=== PATIENT | female | born 1935 | race Caucasian/White ===

== ENCOUNTER 2017-05-23 13:57 | Outpatient (CLI) | payer MEDICARE, OTHER ==
--- NOTE | 2017-05-23 17:15 | CT ---
CT BRAIN WITHOUT CONTRAST: Date: 05/23/17 HISTORY: Delirium. FINDINGS: Comparison made with exam of 07/14/10. 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 The ventricular size is stable. The basilar cisterns are patent. No evidence of acute infarct, hemorrhage, midline shift, or abnormal ex tra-axial fluid collections are seen. The bony calvarium is intact. The visualized paranasal sinuses and mastoid air cells are well aerated. IMPRESSION: No CT evidence of acute intracranial process. POS: DARCIH
--- OUTSIDE RECORDS SUMMARY | 2017-05-25 21:43 | XMS | Clinical Summary ---
:1935 Author Organization [facility] Address [address] [place] [address] Phone Care Team Providers Name Role Phone , Primary Care Provider Unavailable Allergies Not on File Current Medications Not on file Active Problems Not on file Social History Tobacco Use Types Packs/Day Years Used Date Never Assessed Sex Assigned at Date Recorded Not on file Last Filed Vital Signs Not on file Plan of Treatment Not on file Results Not on filefrom Last 3 Months
== END 2017-05-23 13:58 | disposition home or self-care (01) ==
LOC: SCSCT 13:57
PROVIDERS: ATTEND Family Medicine
DX: R41.0 Disorientation, unspecified (principal)
CPT/HCPCS: 70450